=== PATIENT | female | born 1990 | race African-American/Black ===

== ENCOUNTER 2019-06-29 10:57 | Emergency (ER) | payer MEDICAID ==
[~2019-06-29] VITALS: Ht 175.3 cm; Wt 163.0 kg
[2019-06-29] MEDS ORDERED: IBUPROFEN 800MG TABLET PO ONE (12:00)
[2019-06-29 12:49] VITALS: BP 138/81
== END 2019-06-29 15:21 | disposition home or self-care (01) ==
LOC: ER 10:57
DX: M25.512 Pain in left shoulder (principal); R07.81 Pleurodynia; R56.9 Unspecified convulsions; F17.200 Nicotine dependence, unspecified, uncomplicated; V43.52XA Car driver injured in collision with other type car in traffic accident, initial encounter; Y93.89 Activity, other specified; Y92.481 Parking lot as the place of occurrence of the external cause; Z88.2 Allergy status to sulfonamides
CPT/HCPCS: 71100; 73030; 99283

== ENCOUNTER 2019-12-18 00:14 | Emergency (ER) | payer MEDICAID ==
[~2019-12-18] VITALS: Ht 175.3 cm; Wt 155.0 kg
[2019-12-18] MEDS ORDERED: IBUPROFEN 400MG TABLET PO ONE (01:15)
[2019-12-18 02:41] VITALS: BP 137/74
== END 2019-12-18 02:42 | disposition home or self-care (01) ==
LOC: ER 00:14
DX: S93.402A Sprain of unspecified ligament of left ankle, initial encounter (principal); M25.572 Pain in left ankle and joints of left foot; F12.10 Cannabis abuse, uncomplicated; Z88.2 Allergy status to sulfonamides; Z88.6 Allergy status to analgesic agent; X58.XXXA Exposure to other specified factors, initial encounter; Y93.89 Activity, other specified; Y92.89 Other specified places as the place of occurrence of the external cause; Y99.8 Other external cause status
CPT/HCPCS: 73610; 81025; 99283

== ENCOUNTER 2020-12-12 20:02 | Emergency (ER) | payer MEDICAID ==
[~2020-12-12] VITALS: Ht 172.7 cm; Wt 104.0 kg
[2020-12-12] MEDS ORDERED: ONDANSETRON 4MG ODT PO ONE (20:30)
[2020-12-12] MEDS ORDERED: IBUPROFEN 600MG TABLET PO ONE (20:30)
[2020-12-12] MEDS ORDERED: DIAZEPAM 5 MG TABLET PO ONE (20:30)
[2020-12-12] MEDS ORDERED: METH-653 GT (23:49)
[2020-12-12] MEDS ORDERED: IBUP-2029 MT (23:49)
[2020-12-13] VITALS: BP 140/72
== END 2020-12-13 00:16 | disposition home or self-care (01) ==
LOC: ER 20:02
DX: M54.9 Dorsalgia, unspecified (principal); F17.200 Nicotine dependence, unspecified, uncomplicated; V49.9XXA Car occupant (driver) (passenger) injured in unspecified traffic accident, initial encounter; Y93.9 Activity, unspecified; Y92.9 Unspecified place or not applicable; Z88.2 Allergy status to sulfonamides
CPT/HCPCS: 71046; 93005; 99285; Q0162; A4315